=== PATIENT | male | born 1990 ===

== ENCOUNTER 2019-02-26 10:56 | Day surgery (SDC) | payer OTHER ==
[~2019-02-26] VITALS: Ht 182.9 cm; Wt 84.4 kg
[2019-02-26] VITALS (13 sets, daily range): BP systolic 106–126; BP diastolic 54–82
[~2019-02-26 10:56] MED LIST: UNABLE TO OBTAIN; famotidine 20mg tablet PO ONE; ringers solution, lacted 1,000 ML IV SCH
[2019-02-26] MEDS ORDERED: GABA600T13 PO (11:21)
[2019-02-26] MEDS ORDERED: CAPS60CR6 TP (11:21)
[2019-02-26] MEDS ORDERED: NAPR-996 PO (11:21)
[2019-02-26] MEDS ORDERED: vancomycin inj 1,500 MG in normal saline 300ml IV soln IV ONE (12:00)
[2019-02-26] MEDS ORDERED: cefazolin/dext.iso 2gm/100 ML IV ONE (12:00)
[2019-02-26] MEDS ORDERED: BUPIVAcaine/PF 2.5 mg/ml (0.25%) 30ml vial ONE (12:37)
[2019-02-26] MEDS ORDERED: fentaNYL /PF 50mcg/ml 5ml ampule ONE (12:45)
[2019-02-26] MEDS ORDERED: MIDAZolam 5mg/5ml vial ONE (12:45)
[2019-02-26] MEDS ORDERED: sevoflurane 250ml liquid IH ONE (12:46)
[2019-02-26] MEDS ORDERED: ROPIVAcaine 0.5% (5mg/ml) 30ml vial ONE (12:46)
[2019-02-26] MEDS ORDERED: ceFAZolin 1000mg inj ONE (12:57)
[2019-02-26] MEDS ORDERED: gelatin sponge, absorbable (Gelfoam 100) sponge TP ONE (13:16)
[2019-02-26] MEDS ORDERED: Thrombin (Bovine) 5,000 unit vial TP ONE (13:16)
[2019-02-26] MEDS ORDERED: ondansetron/PF 4mg/2ml inj ONE (13:27)
[2019-02-26] MEDS ORDERED: dexamethasone sod phosphate 4mg/ml inj. ONE (13:27)
[2019-02-26] MEDS ORDERED: propofol inj 20 ML IV ONE (13:27)
[2019-02-26] MEDS ORDERED: LIDOcaine 1%/PF 5ML 10 MG/ML VIAL ONE (13:27)
[2019-02-26] MEDS ORDERED: vancomycin 1,000mg inj ONE (13:30)
[2019-02-26] MEDS ORDERED: ringers solution, lacted 1,000 ML IV SCH (13:59)
[2019-02-26] MEDS ORDERED: proCHLORperazine 10 MG/2 ml inj IV PRN (14:00)
[2019-02-26] MEDS ORDERED: meperidine/PF 25mg/ml syringe IV PRN ×3 (14:00)
[2019-02-26] MEDS ORDERED: ondansetron/PF 4mg/2ml inj IV PRN (14:00)
[2019-02-26] MEDS ORDERED: morphine 4 MG/ML inj SYRINge IV PRN ×2 (14:00)
--- NOTE | 2019-02-26 14:43 | NUR ---
Received from OR via BED, accompanied by Anesthesiologist DR Hanna report given by Anesthesiologist. PT VERY DROWSY, NO S/S OF DISTRESS/DISCOMFORT, LEFT SHOULDER W/ISLAND DRSG COVERING INCISION, CDI. Addendum: 02/26/19 at 1524 by Sadaf Yi RN Amended: Links added.
[2019-02-26] MEDS ORDERED: ondansetron 4mg rapidly disintigrating tab PO ONE (16:15)
[2019-02-26] MEDS ORDERED: HYDROcodone/acetaminophen 10/325mg tab PO ONE (16:15)
== END 2019-02-26 16:43 ==
LOC: PAS 10:56 → EEVIPCON 14:00 → PAS 16:43
PROVIDERS: ATTEND Orthopaedic Surgery
DX: S42.012A Anterior displaced fracture of sternal end of left clavicle, initial encounter for closed fracture (principal); M25.512 Pain in left shoulder; X58.XXXD Exposure to other specified factors, subsequent encounter; Y92.89 Other specified places as the place of occurrence of the external cause; Y93.89 Activity, other specified
CPT/HCPCS: 23515; 82948; C1713; J0690; J1100; J2175; J2250; J2405; J2704; J3010; J3370; J3490; A4215; A4618; A7000; J2795; J7120